=== PATIENT | female | born 1990 | race American Indian/Alaskan Native ===

== ENCOUNTER 2021-11-21 19:34 | Emergency (ER) | payer MEDICARE ==
[2021-11-21] MEDS ORDERED: ALBUTEROL 2.5 MG/3 ML NEBU IH ONE (19:55)
[2021-11-21] MEDS ORDERED: predniSONE 20 MG TAB PO ONE (19:55)
[2021-11-21] MEDS ORDERED: IPRATROPIUM 0.02% NEBU 2.5 ML IH ONE (19:55)
--- NOTE | 2021-11-21 21:13 | Emergency Department Report ---
ED Asthma HPI - General Chief Complaint: Adult Asthma Stated Complaint: ASTHMA ATTACK Time Seen by Provider: 11/21/21 19:51 Source: patient Mode of arrival: Ambulatory Limitations: No Limitations - History of Present Illness Initial Comments: Chief complaint: "I think I need some steroids." HPI: This is a 31-year-old female with history of persistent asthma, GERD who presents with shortness of breath, wheezing, mild cough. Patient has asthma attacks every 3 to 6 months. She has been compliant with daily Advair therapy. She moved from [place] several months ago. Albuterol rescue treatment did not improve her symptoms. Most recent hospitalization occurred 1-1/2 years ago. No history of intubation. MD Complaint: "asthma attack", shortness of breath, wheezing -: Gradual, days(s) (1 day) Asthma History: childhood onset, history of prior ED visit Severity: moderate Context: none known Associated Symptoms: dry cough Treatments Prior to Arrival: inhaled bronchodilator - Related Data Previous Rx's Medication Instructions Recorded Last Taken Type Prednisone [predniSONE 10 mg 10 mg PO .TAPER #1 11/21/21 Unknown Rx (6-Day Pack, 21 Tabs)] Allergies Allergy/AdvReac Type Severity Reaction Status Date / Time No Known Allergies Allergy Unverified 11/21/21 19:39 ED Review of Systems ROS: Stated complaint: ASTHMA ATTACK Other details as noted in HPI Comment: All other systems reviewed and negative Constitutional: denies: chills, fever, malaise Respiratory: cough, shortness of breath, wheezing Cardiovascular: denies: chest pain Gastrointestinal: denies: abdominal pain, nausea, vomiting ED Past Medical Hx - Past Medical History Previous Medical History?: Yes Hx GERD: Yes Hx Asthma: Yes - Surgical History Past Surgical History?: No - Family History Family history: asthma - Social History Smoking Status: Never Smoker Substance Use Type: None - Medications Home Medications: Home Medications Medication Instructions Recorded Confirmed Last Taken Type Prednisone [predniSONE 10 mg 10 mg PO .TAPER #1 11/21/21 Unknown Rx (6-Day Pack, 21 Tabs)] ED Physical Exam - General Limitations: No Limitations General appearance: alert, in no apparent distress, other (Speaking full word sentences) - Head Head exam: Present: atraumatic, normocephalic - Eye Eye exam: Present: normal appearance - ENT ENT exam: Present: mucous membranes moist - Neck Neck exam: Present: normal inspection - Respiratory Respiratory exam: Present: wheezes, other (Faint end expiratory wheezes with good air movement). Absent: respiratory distress, rales, rhonchi, accessory muscle use, decreased breath sounds, prolonged expiratory - Cardiovascular Cardiovascular Exam: Present: regular rate, normal rhythm, normal heart sounds. Absent: systolic murmur, diastolic murmur, rubs, gallop - GI/Abdominal GI/Abdominal exam: Present: soft, normal bowel sounds. Absent: distended, tenderness, guarding, rebound - Extremities Exam Extremities exam: Present: normal inspection - Neurological Exam Neurological exam: Present: alert, oriented X3 - Psychiatric Psychiatric exam: Present: normal affect, normal mood - Skin Skin exam: Present: warm, dry, intact, normal color. Absent: rash ED Course Vital Signs 11/21/21 11/21/21 20:57 21:02 Temperature 98.7 F Pulse Rate 94 H Pulse Rate [ 92 H Anterior Bilateral] Respiratory 18 Rate Respiratory 16 Rate [Anterior Bilateral] Blood Pressure 118/78 [Right] O2 Sat by Pulse 98 Oximetry ED Medical Decision Making - Medical Decision Making Mild asthma exacerbation with acceptable air movement on auscultation: Patient received 10 mg albuterol, 1 mg Atrovent continuous nebulizer therapy. She also received 60 mg of prednisone. I have prescribed prednisone taper. I recommended antihistamine [id number] for the next 2 weeks. She was referred to internal medicine physician. Critical care attestation.: If time is entered above; I have spent that time in minutes in the direct care of this critically ill patient, excluding procedure time. ED Disposition Clinical Impression: Asthma exacerbation Disposition: 01 HOME / SELF CARE / HOMELESS Is pt being admited?: No Does the pt Need Aspirin: No Condition: Stable Instructions: Asthma and Physical Activity, Asthma Attack Prescriptions: Prednisone [predniSONE 10 mg (6-Day Pack, 21 Tabs)] 10 mg PO .TAPER #1 Referrals: FAITH SCHILLING MD [Staff Physician] - 3-5 Days
[2021-11-21 21:41] VITALS: BP 128/82
== END 2021-11-21 21:40 | disposition home or self-care (01) ==
LOC: ED 19:34
DX: J45.901 Unspecified asthma with (acute) exacerbation (principal); K21.9 Gastro-esophageal reflux disease without esophagitis
CPT/HCPCS: 94640; 94644; 99282